=== PATIENT | male | born 1960 | race Caucasian/White ===

== ENCOUNTER 2017-07-07 17:12 | Outpatient (CLI) | payer OTHER ==
--- NOTE | 2017-07-08 10:30 | XRAY Report ---
THREE VIEW RIGHT KNEE: 07/07/2017 CLINICAL INDICATION: Pain. FINDINGS: AP, lateral, sunrise views of the right knee demonstrate no evidence of acute fracture or dislocation. No effusion is evident. The joint spaces are preserved. No foreign body is seen in the soft tissues. IMPRESSION: NORMAL RIGHT KNEE. TD: 07/08/2017 10:30
== END 2017-07-07 17:13 | disposition home or self-care (01) ==
LOC: DI 17:12
PROVIDERS: ATTEND Nurse Practitioner Family
DX: M25.561 Pain in right knee (principal)

== ENCOUNTER 2018-01-19 16:42 | Outpatient (CLI) | payer OTHER ==
--- NOTE | 2018-01-20 19:18 | MRI Report ---
Reason: PAIN IN RIGHT KNEE Procedure Date: 01/19/2018 Accession Number: [id number] / [id number] Procedure: MRI - Knee RT W/O CPT Code: FULL RESULT: EXAM: RIGHT KNEE MRI WITHOUT CONTRAST EXAM DATE: 01/19/2018 05:43 PM. CLINICAL HISTORY: Pain in right knee. COMPARISON: KNEE 3 VIEW RT 07/07/2017 5:18 PM. TECHNIQUE: Multiplanar, multisequence T1-weighted and fluid-sensitive sequences of the knee without contrast. Other: None. FINDINGS: Bones: Subcortical marrow edema high posterior aspect lateral femoral condyle (image 20 series 501). There is associated severe chondromalacia. 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 Moderate focal chondromalacia mid lateral femoral condyle on the coronal T2-weighted fat saturation sequence. Mild chondromalacia mid medial femoral condyle. Medial Meniscus: The medial meniscus is intact. Lateral Meniscus: The lateral meniscus is intact. Intrameniscal increased signal anterior horn lateral meniscus without definite extension to the articular surface. Cyst 4.5 mm anterior aspect anterior horn lateral meniscus. Cruciate Ligaments: The anterior and posterior cruciate ligaments are intact. Collateral Ligaments: The medial collateral and lateral collateral ligamentous structures are intact. Tendons: The quadriceps, patellar, semimembranosus, and popliteus tendons are unremarkable. Musculature: Negative for muscle atrophy or edema. Other: No effusion. No popliteal cyst. No loose bodies. The medial and lateral retinacula are intact. The subcutaneous tissues and fat pads are unremarkable. IMPRESSION: 1. Negative for meniscus tear or internal derangement. 2. 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 [facility] MUSCULOSKELETAL RADIOLOGY SECTION
== END 2018-01-19 16:43 | disposition home or self-care (01) ==
LOC: DI 16:42
PROVIDERS: ATTEND Orthopaedic Surgery Sports Medicine
DX: M94.261 Chondromalacia, right knee (principal)